=== PATIENT | male | born 1985 | race Caucasian/White ===

== ENCOUNTER 2016-05-20 10:44 | Emergency (ER) | payer MEDICAID ==
[~2016-05-20] VITALS: Ht 177.8 cm; Wt 102.0 kg
[2016-05-20] MEDS ORDERED: GUAIFENESIN/CODEINE 200-20MG/10ML UDC PO ONE (20:15)
[2016-05-20] MEDS ORDERED: ALBUTEROL (0.5%) 2.5MG/0.5ML NEB HHN ONE (20:15)
[2016-05-20 20:17] VITALS: BP 132/78
[2016-05-20] MEDS ORDERED: AZITHROMYCIN 500 MG TABLET PO ONE (23:15)
== END 2016-05-21 00:18 | disposition home or self-care (01) ==
LOC: ER 12:07
DX: R05 Cough (principal)
CPT/HCPCS: 71020; 99284; J7611

== ENCOUNTER 2016-08-05 22:32 | Emergency (ER) | payer MEDICAID ==
[~2016-08-05] VITALS: Ht 175.3 cm; Wt 113.0 kg
[~2016-08-05 22:32] MED LIST: IOHEXOL-300 100 ML BOTTLE ONE; SODIUM CHLORIDE 0.9% 10ML VIAL ONE
[2016-08-06] MEDS ORDERED: FAMOTIDINE 20MG/2ML VIAL IV STA (00:11)
[2016-08-06] MEDS ORDERED: KETOROLAC 30MG/ML VIAL IV STA (00:11)
[2016-08-06 00:27] LABS: BASOPHILS % 0.8 % (0.0-2.0); EOSINOPHILS % 1.7 % (0.0-5.0); HEMATOCRIT. 42.7 % (42.0-52.0); HEMOGLOBIN. 15.2 g/dL (14.0-18.0); LYMPHOCYTES % 27.7 % (20.0-50.0); MEAN CORPUSCULAR HEMOGLOBIN 31.1 pg (28.0-32.0); MEAN CORPUSCULAR VOLUME 87.3 fL (80.0-94.0); MEAN PLATELET VOLUME 8.2 fl (7.4-10.4); MONOCYTES % 11.8 % (2.0-8.0); PLATELET 283 x1000/uL (130-400)
[2016-08-06 00:29] LABS: CLARITY URINE CLEAR (CLEAR); COLOR URINE YELLOW (YELLOW); GLUCOSE URINE NEGATIVE (NEGATIVE); KETONES URINE NEGATIVE (NEGATIVE); LEUKOCYTE ESTERASE URINE NEGATIVE (NEGATIVE); NITRITE URINE NEGATIVE (NEGATIVE); OCCULT BLOOD URINE NEGATIVE (NEGATIVE); PROTEIN URINE NEGATIVE (NEGATIVE); SPECIFIC GRAVITY URINE 1.029 (1.005-1.030)
[2016-08-06 00:33] LABS: CHLORIDE 102 mEq/L (98-107)
[2016-08-06 00:42] LABS: CARBON DIOXIDE 28 mEq/L (21-32)
[2016-08-06 02:57] VITALS: BP 109/62
== END 2016-08-06 03:00 | disposition home or self-care (01) ==
LOC: ER 22:43
DX: K76.0 Fatty (change of) liver, not elsewhere classified (principal); R16.0 Hepatomegaly, not elsewhere classified
CPT/HCPCS: 36415; 74177; 80053; 81003; 83690; 85025; 96374; 96375; 99285; A4216; J1885; J3490; Q9967